=== PATIENT | male | born 1945 | race Caucasian/White ===

== ENCOUNTER 2017-07-18 18:26 | Emergency (ER) | payer OTHER ==
[2017-07-18] MEDS: ACETAMINOPHEN 325 MG TAB PO (19:09)
[2017-07-18] MEDS: ALBUTEROL 0.083% (NEB) 2.5 MG/3 ML AMP HHN (19:19)
== END 2017-07-18 22:11 | disposition home or self-care (01) ==
LOC: FTE 18:26
DX: J06.9 Acute upper respiratory infection, unspecified (principal); I10 Essential (primary) hypertension; E11.9 Type 2 diabetes mellitus without complications; J45.901 Unspecified asthma with (acute) exacerbation
CPT/HCPCS: 71045; 94664; 99284-25